=== PATIENT | male | born 1970 | race Asian ===

== ENCOUNTER → 2021-08-16 | Outpatient (CLI) | payer OTHER | LOC: LAB 08:43 | DX: E55.9 Vitamin D deficiency, unspecified (principal); E78.5 Hyperlipidemia, unspecified | CPT/HCPCS: 36415; 80061 ==

== ENCOUNTER → 2021-09-04 | Outpatient (CLI) | payer OTHER | LOC: EXRD 12:34 | DX: Z13.820 Encounter for screening for osteoporosis (principal); K74.60 Unspecified cirrhosis of liver; M85.80 Other specified disorders of bone density and structure, unspecified site | CPT/HCPCS: 77080 ==